=== PATIENT | male | born 1950 | race Caucasian/White ===

== ENCOUNTER 2018-06-25 12:00 | Inpatient (IN) | payer OTHER ==
[~2018-06-25 12:00] MED LIST: ETOMIDATE 20 MG INJ; KETAMINE (50 MG/ML) 10 ML VIAL
[2018-06-25] MEDS: SOD CHLORIDE 0.9% 250 ML IV ×2 (12:14→14:00)
[2018-06-25] MEDS: SODIUM CHLORIDE 0.9% 1L BAG IV* (12:20)
[2018-06-25 12:46] LABS: IMMEDIATE SPIN CROSSMATCH 1 3
[2018-06-25 12:48] LABS: WHITE BLOOD COUNT 17.8 10^3/ul (4.8-10.8)
[2018-06-25 12:48] LABS: ABNORMAL IP MESSAGE 1; MEAN CORPUSCULAR HGB CONC 28.4 g/dl (32.0-37.0); MEAN CORPUSCULAR VOLUME 112.4 fl (82.0-101.0); MEAN PLATELET VOLUME 12.1 fl (7.4-10.4); NUCLEATED RED BLOOD CELLS% 0.1 /100WBC (0.0-0.0); PLATELET COUNT 200 10^3/UL (140-415); POSITIVE DIFF @See below; RED BLOOD COUNT 1.69 10^6/ul (4.70-6.10); RED CELL DISTRIBUTION WIDTH 15.5 % (11.5-14.5)
[2018-06-25 12:51] LABS: ADD MAN DIFF? YES; HEMOGLOBIN 5.4 g/dl (14.0-18.0)
[2018-06-25 12:52] LABS: PATH REVIEW? YES
[2018-06-25] MEDS ORDERED: LORAZEPAM 2 MG INJ (12:55)
[2018-06-25 13:07] LABS: INR 1.31; PARTIAL THROMBOPLASTIN TIME 29.4 Sec (23.0-35.0); PROTIME 16.5 Sec (11.9-14.9); PT RATIO 1.3
[2018-06-25 13:09] LABS: OCCULT BLOOD STOOL POSITIVE (NEGATIVE)
[2018-06-25 13:11] LABS: ALANINE AMINOTRANSFERASE 30 IU/L (13-69); ALBUMIN 2.6 g/dl (3.3-4.9); ALKALINE PHOSPHATASE 141 IU/L (42-121); ANION GAP 16 (5-13); ASPARTATE AMINO TRANSFERASE 54 IU/L (15-46); BILIRUBIN,INDIRECT 0.1 mg/dl (0-1.1); BILIRUBIN,TOTAL 0.1 mg/dl (0.2-1.3); BLOOD UREA NITROGEN 88 mg/dl (7-20); CALCIUM 8.3 mg/dl (8.4-10.2); CARBON DIOXIDE 14 mmol/L (21-31); CHLORIDE 119 mmol/L (97-110); CREATININE 4.24 mg/dl (0.61-1.24); Estimated GFR 14 mL/min (>60); GLUCOSE 95 mg/dl (70-220); POTASSIUM 5.3 mmol/L (3.5-5.1); SODIUM 149 mmol/L (135-144); TOTAL PROTEIN 5.2 g/dl (6.1-8.1)
[2018-06-25] MEDS: NORepinephrine 8MG/250 ML (PMX 250 ML IV (13:11)
[2018-06-25] MEDS: LORAZEPAM 2 MG INJ IV (13:11)
[2018-06-25] MEDS: PIPER-TAZO 3.375 GM IV (PMX) 100 ML IVPB (13:14)
[2018-06-25 13:15] LABS: ANISOCYTOSIS 1+ (0-0); BAND NEUTROPHILS #M 5.3 10^3/ul (0.0-0.6); BAND NEUTROPHILS % (M) 30 % (0-4); ERYTHROBLAST% (NRBC) (M) 1 % (0-0); LYMPHOCYTES #M 0.5 10^3/ul (0.8-2.9); LYMPHOCYTES % (M) 3 % (15-51); MICROCYTOSIS 1+ (0-0); MONOCYTE #M 0.8 10^3/ul (0.3-0.9); MONOCYTES % (M) 5 % (0-11); PLATELET ESTIMATE NORMAL; POIKILOCYTOSIS 2+ (0-0); POLYCHROMASIA 3+ (0-0); SEGMENTED NEUTROPHILS (M) % 62 % (39-77)
[2018-06-25 13:22] LABS: TROPONIN-I 0.075 ng/ml (0.000-0.120)
[2018-06-25] MEDS ORDERED: VANCOMYCIN IV PER PHARMACY XX (13:30)
[2018-06-25] MEDS ORDERED: DOCUSATE SODIUM 100 MG CAP PO (13:30)
[2018-06-25] MEDS ORDERED: NITROGLYCERIN (SL) 0.4 MG TAB SL (13:30)
[2018-06-25] MEDS ORDERED: ACETAMINOPHEN 325 MG TAB PO (13:30)
[2018-06-25] MEDS ORDERED: ONDANSETRON 4 MG INJ IV ×2 (13:30)
[2018-06-25] MEDS ORDERED: NA PHOSPHATE/BIPHOS 133 ML ENEMA PR (13:30)
[2018-06-25] MEDS ORDERED: ALBUTEROL/IPRATROPIUM (NEB) 3 ML AMP HHN (13:30)
[2018-06-25] MEDS ORDERED: MAGNESIUM HYDROXIDE 30ML CUP PO (13:30)
[2018-06-25] MEDS ORDERED: NACL 0.9% 3 ML SYG IV (13:30)
[2018-06-25 13:38] LABS: ADD UMIC YES; UR ASCORBIC ACID NEGATIVE (NEGATIVE); UR BACTERIA FEW /HPF (NONE SEEN); UR BILIRUBIN (Dip) NEGATIVE (NEGATIVE); UR BLOOD (Dip) 1+ mg/dL (NEGATIVE); UR CLARITY SLIGHTLY CLOUDY (CLEAR); UR COLOR YELLOW (YELLOW); UR GLUCOSE (Dip) NEGATIVE (NEGATIVE); UR KETONES (Dip) NEGATIVE (NEGATIVE); UR LEUKOCYTE ESTERASE (Dip) 1+ Leu/ul (NEGATIVE); UR NITRITE (Dip) NEGATIVE (NEGATIVE); UR RBC 7 /HPF (0-5); UR SPECIFIC GRAVITY (Dip) 1.014 (1.003-1.030); UR TOTAL PROTEIN (Dip) NEGATIVE (NEGATIVE); UR UROBILINOGEN (Dip) NEGATIVE (NEGATIVE); UR WBC 34 /HPF (0-5)
[2018-06-25 13:58] LABS: CREATINE KINASE 625 IU/L (23-200)
[2018-06-25 14:07] LABS: FREE T4 (FREE THYROXINE) 0.49 ng/dl (0.78-2.44)
[2018-06-25 14:11] LABS: CK INDEX 0.7; CK-MB 4.15 ng/ml (0.0-2.4); TROPONIN-I 0.087 ng/ml (0.000-0.120)
[2018-06-25] MEDS ORDERED: PHENYLephrine 20MG IN 250 ML 250 ML (14:12)
[2018-06-25] MEDS: PHENYLephrine 20MG IN 250 ML 250 ML IV (14:15)
[2018-06-25 14:19] LABS: AADO2 Arterial 196.9 mmHg (7.0-24.0); Allen Test ACCEPTAB; Arterial Base Excess -13.9 mmol/L (-3.0-3); Arterial Blood Gas Oxygen Sat 96.7 mmHG (95.0-98.0); Arterial COHb 0.3 % (0.0-3.0); Arterial Fraction of Oxyhgb 96.1 % (93.0-99.0); Arterial MetHb 0.3 % (0.0-1.5); Arterial Total Hemglobin 8.7 g/dl (12.0-18.0); Arterial pCO2 34.2 mmhg (35-45); Blood Gas Low PEEP Setting 0 cmH2O; MODE VENT - AC; Site Left Radial
[2018-06-25] MEDS: LEVETIRACETAM 1000 MG (PMX) 100 ML IVPB (14:26)
[2018-06-25] MEDS: VANCOMYCIN 1 GM (PMX) 250 ML IVPB (15:10)
[2018-06-25] MEDS ORDERED: NA BICARBONATE 8.4% 50 ML SYG (15:47)
[2018-06-25] MEDS: NA BICARBONATE 8.4% 50 ML SYG IV (15:54)
[2018-06-25 16:40] LABS: ABNORMAL IP MESSAGE 1; HEMATOCRIT 27.4 % (42.0-52.0); HEMOGLOBIN 8.7 g/dl (14.0-18.0); MEAN CORPUSCULAR HEMOGLOBIN 31.5 pg (29.0-33.0); MEAN CORPUSCULAR HGB CONC 31.8 g/dl (32.0-37.0); MEAN CORPUSCULAR VOLUME 99.3 fl (82.0-101.0); MEAN PLATELET VOLUME 11.8 fl (7.4-10.4); NUCLEATED RED BLOOD CELLS% 0.2 /100WBC (0.0-0.0); PLATELET COUNT 220 10^3/UL (140-415); POSITIVE DIFF @See below; RED BLOOD COUNT 2.76 10^6/ul (4.70-6.10); RED CELL DISTRIBUTION WIDTH 17.3 % (11.5-14.5)
[2018-06-25 16:42] LABS: ADD MAN DIFF? YES
[2018-06-25] MEDS: SOD CHLORIDE 0.9% 1,000 ML IV (16:51)
[2018-06-25 17:10] LABS: LACTIC ACID 9.8 mmol/L (0.5-2.0)
[2018-06-25] MEDS: NORepinephrine 32 MG in DEXTROSE 5% 218 ML IV (17:24)
[2018-06-25] MEDS: VASOPRESSIN 60 UNIT in DEXTROSE 5% 57 ML IV (17:30)
[2018-06-25] MEDS ORDERED: PHENYLephrine 40 MG in DEXTROSE 5% 496 ML IV (17:30)
[2018-06-25 17:40] LABS: HEMOGLOBIN A1C 5.5 % (0-5.9)
[2018-06-25] MEDS: MINERAL OIL 133 ML ENEMA PR ×2 (17:47→18:55)
[2018-06-25] MEDS ORDERED: PIPER-TAZO 3.375 GM IV (PMX) 100 ML IVPB (18:00)
[2018-06-25 18:33] LABS: AADO2 Arterial 162.9 mmHg (7.0-24.0); Allen Test ACCEPTAB; Arterial Base Excess -9.5 mmol/L (-3.0-3); Arterial Blood Gas Oxygen Sat 98.3 mmHG (95.0-98.0); Arterial COHb 0.3 % (0.0-3.0); Arterial Fraction of Oxyhgb 97.6 % (93.0-99.0); Arterial HCO3 15.9 mmol/L (22.0-26.0); Arterial MetHb 0.4 % (0.0-1.5); Arterial pCO2 32.6 mmhg (35-45); MODE VENT - AC; Site Right Radial
[2018-06-25] MEDS: PANTOPRAZOLE 40 MG INJ IV (18:55)
[2018-06-25] MEDS: MIDAZOLAM (DRIP) 50 mg/50 mL 50 ML IV (20:00)
[2018-06-25] MEDS: PHENYLephrine 80 MG in DEXTROSE 5% 492 ML IV ×2 (20:20→22:40)
[2018-06-25] MEDS: MIRTAZAPINE 15 MG TAB PO (20:57)
[2018-06-25] MEDS: MEMANTINE 10 MG TAB PO (20:58)
[2018-06-25 21:00] LABS: CREATINE KINASE 1568 IU/L (23-200)
[2018-06-25] MEDS ORDERED: FAMOTIDINE 20 MG INJ IV (21:00)
[2018-06-25 21:04] LABS: LACTIC ACID 9.3 mmol/L (0.5-2.0)
[2018-06-25 21:12] LABS: CK INDEX 0.8
[2018-06-25] MEDS: DEXTROSE 5%-0.45% NACL 1,000 ML IV (21:34)
[2018-06-25 21:52] LABS: ANISOCYTOSIS 2+ (0-0); BAND NEUTROPHILS #M 5.8 10^3/ul (0.0-0.6); BAND NEUTROPHILS % (M) 45 % (0-4); BURR CELLS 1+ (0-0); GIANT THROMBO% (M) 8 % (0-0); LYMPHOCYTES #M 0.3 10^3/ul (0.8-2.9); LYMPHOCYTES % (M) 3 % (15-51); METAMYELOCYTES #M 0.1 10^3/ul (0.0-0.0); METAMYELOCYTES %M 1 % (0-0); MICROCYTOSIS 1+ (0-0); MONOCYTE #M 0.1 10^3/ul (0.3-0.9); MONOCYTES % (M) 1 % (0-11); MYELOCYTES #M 0.1 10^3/ul (0.0-0.0); MYELOCYTES % (M) 1 % (0-0); PLATELET ESTIMATE NORMAL; POIKILOCYTOSIS 1+ (0-0); POLYCHROMASIA 1+ (0-0); SEG NEUT #M 7.1 10^3/ul (1.6-7.5); SEGMENTED NEUTROPHILS (M) % 49 % (39-77); SMUDGE%M 93 % (0-0)
[2018-06-25] MEDS: PIPER-TAZO 2.25 GM (PMX) 50 ML IVPB (22:07)
[2018-06-26] MEDS: PHENYLephrine 160 MG in DEXTROSE 5% 484 ML IV ×3 (00:56→18:32)
[2018-06-26 01:04] LABS: HEMATOCRIT 29.9 % (42.0-52.0); HEMOGLOBIN 9.4 g/dl (14.0-18.0)
[2018-06-26 01:26] LABS: LACTIC ACID 8.8 mmol/L (0.5-2.0)
[2018-06-26] MEDS: VASOPRESSIN 60 UNIT in DEXTROSE 5% 57 ML IV ×3 (01:37→20:14)
[2018-06-26] MEDS: MIDAZOLAM (DRIP) 50 mg/50 mL 50 ML IV (04:32)
[2018-06-26 04:59] LABS: ABNORMAL IP MESSAGE 1; HEMOGLOBIN 8.4 g/dl (14.0-18.0); MEAN CORPUSCULAR HEMOGLOBIN 30.5 pg (29.0-33.0); MEAN CORPUSCULAR HGB CONC 31.1 g/dl (32.0-37.0); MEAN CORPUSCULAR VOLUME 98.2 fl (82.0-101.0); MEAN PLATELET VOLUME 12.4 fl (7.4-10.4); NUCLEATED RED BLOOD CELLS% 0.5 /100WBC (0.0-0.0); PLATELET COUNT 142 10^3/UL (140-415); POSITIVE DIFF @See below; RED BLOOD COUNT 2.75 10^6/ul (4.70-6.10); RED CELL DISTRIBUTION WIDTH 17.9 % (11.5-14.5)
[2018-06-26 04:59] LABS: WHITE BLOOD COUNT 14.2 10^3/ul (4.8-10.8)
[2018-06-26] MEDS: PANTOPRAZOLE 40 MG INJ IV ×2 (05:11→19:30)
[2018-06-26] MEDS: PIPER-TAZO 2.25 GM (PMX) 50 ML IVPB ×3 (05:11→22:08)
[2018-06-26 05:14] LABS: HEMOGLOBIN A1C 5.6 % (0-5.9)
[2018-06-26 05:15] LABS: LACTIC ACID 5.1 mmol/L (0.5-2.0)
[2018-06-26 05:22] LABS: HDL CHOLESTEROL 26 mg/dl (31-75); TRIGLYCERIDES 32 mg/dl (0-149)
[2018-06-26 05:22] LABS: CHOLESTEROL < 50 mg/dl (100-200)
[2018-06-26 05:23] LABS: CREATINE KINASE 1445 IU/L (23-200)
[2018-06-26 05:25] LABS: ANION GAP 12 (5-13); BLOOD UREA NITROGEN 97 mg/dl (7-20); CARBON DIOXIDE 19 mmol/L (21-31); CHLORIDE 109 mmol/L (97-110); CREATININE 4.48 mg/dl (0.61-1.24); Estimated GFR 13 mL/min (>60); GLUCOSE 240 mg/dl (70-220); MAGNESIUM 4.2 mg/dl (1.7-2.5); PHOSPHORUS 3.5 mg/dl (2.5-4.9); POTASSIUM 5.3 mmol/L (3.5-5.1); SODIUM 140 mmol/L (135-144)
[2018-06-26 05:31] LABS: ADD MAN DIFF? YES; CREATININE,URINE RANDOM 16.19 mg/dl (20-370)
[2018-06-26 05:31] LABS: SODIUM,URINE RANDOM 149 mmol/L (30-90)
[2018-06-26 06:27] LABS: FOLATE 17.7 ng/ml (2.8-20.0)
[2018-06-26] MEDS: SOD CHLORIDE 0.9% 1,000 ML IV ×2 (07:00→18:47)
[2018-06-26 07:38] LABS: ANISOCYTOSIS 1+ (0-0); BAND NEUTROPHILS #M 9.9 10^3/ul (0.0-0.6); BAND NEUTROPHILS % (M) 70 % (0-4); BASOPHIL #M 0.1 10^3/ul (0.0-0.0); BASOPHILS % (M) 1 % (0-2); BURR CELLS 2+ (0-0); GIANT THROMBO% (M) 3 % (0-0); LYMPHOCYTES #M 0.7 10^3/ul (0.8-2.9); LYMPHOCYTES % (M) 5 % (15-51); METAMYELOCYTES #M 0.1 10^3/ul (0.0-0.0); METAMYELOCYTES %M 1 % (0-0); MONOCYTE #M 0.1 10^3/ul (0.3-0.9); MONOCYTES % (M) 1 % (0-11); MYELOCYTES #M 0.1 10^3/ul (0.0-0.0); MYELOCYTES % (M) 1 % (0-0); PLATELET ESTIMATE NORMAL; POIKILOCYTOSIS 2+ (0-0); REACTIVE LYMPHOCYTES #M 0.1 10^3/ul (0.0-0.0); REACTIVE LYMPHOCYTES% (M) 1 % (0-0); SEG NEUT #M 4.2 10^3/ul (1.6-7.5); SEGMENTED NEUTROPHILS (M) % 20 % (39-77)
[2018-06-26] MEDS ORDERED: MELOXICAM 15 MG TAB PO (09:00)
[2018-06-26 09:30] LABS: LACTIC ACID 3.9 mmol/L (0.5-2.0)
[2018-06-26] MEDS: MEMANTINE 10 MG TAB PO ×2 (09:39→20:28)
[2018-06-26] MEDS: MULTIVITAMINS THERAPEUTIC TAB PO (09:39)
[2018-06-26 10:35] LABS: ADD UMIC YES; UR ASCORBIC ACID NEGATIVE (NEGATIVE); UR BILIRUBIN (Dip) NEGATIVE (NEGATIVE); UR BLOOD (Dip) 3+ mg/dL (NEGATIVE); UR CLARITY CLOUDY (CLEAR); UR COLOR RED (YELLOW); UR GLUCOSE (Dip) 1+ mg/dL (NEGATIVE); UR KETONES (Dip) NEGATIVE (NEGATIVE); UR LEUKOCYTE ESTERASE (Dip) TRACE Leu/ul (NEGATIVE); UR NITRITE (Dip) NEGATIVE (NEGATIVE); UR RBC > 182 /HPF (0-5); UR SPECIFIC GRAVITY (Dip) 1.016 (1.003-1.030); UR TOTAL PROTEIN (Dip) 2+ mg/dl (NEGATIVE); UR UROBILINOGEN (Dip) NEGATIVE (NEGATIVE); UR WBC > 182 /HPF (0-5)
[2018-06-26] MEDS: morphine 2 MG INJ IV ×2 (11:46→16:02)
[2018-06-26] MEDS: NORepinephrine 32 MG in DEXTROSE 5% 218 ML IV (11:54)
[2018-06-26 12:08] LABS: HEMATOCRIT 26.2 % (42.0-52.0); HEMOGLOBIN 8.5 g/dl (14.0-18.0)
[2018-06-26 12:19] LABS: ANION GAP 12 (5-13); BLOOD UREA NITROGEN 99 mg/dl (7-20); CALCIUM 6.7 mg/dl (8.4-10.2); CARBON DIOXIDE 18 mmol/L (21-31); CHLORIDE 107 mmol/L (97-110); CREATININE 4.49 mg/dl (0.61-1.24); Estimated GFR 13 mL/min (>60); GLUCOSE 165 mg/dl (70-220); POTASSIUM 5.6 mmol/L (3.5-5.1); SODIUM 137 mmol/L (135-144)
[2018-06-26] MEDS: ACETAMINOPHEN 325 MG TAB PO ×2 (12:42→23:49)
[2018-06-26] MEDS: DIGOXIN 500 MCG INJ IV (13:42)
[2018-06-26] MEDS: CASPOFUNGIN 70 MG in SOD CHLORIDE 0.9% 250 ML IVPB (16:05)
[2018-06-26] MEDS: HYDROCODONE/APAP (5/325) TAB PO (16:05)
[2018-06-26 19:02] LABS: HEMOGLOBIN 8.2 g/dl (14.0-18.0)
[2018-06-26] MEDS: MINERAL OIL 133 ML ENEMA PR ×2 (20:04→20:28)
[2018-06-26] MEDS: AMIODARONE 150MG/D5W BOLUS 100 ML IV (20:04)
[2018-06-26] MEDS: MIRTAZAPINE 15 MG TAB PO (20:28)
[2018-06-26] MEDS: AMIODARONE 900 MG in DEXTROSE 5% 482 ML IV (20:29)
[2018-06-27 00:49] LABS: HEMATOCRIT 24.8 % (42.0-52.0)
[2018-06-27] MEDS: morphine 2 MG INJ IV (01:45)
[2018-06-27] MEDS: PHENYLephrine 160 MG in DEXTROSE 5% 484 ML IV ×3 (02:22→19:33)
[2018-06-27] MEDS: LORAZEPAM 2 MG INJ IV (04:38)
[2018-06-27] MEDS: SOD CHLORIDE 0.9% 1,000 ML IV ×2 (04:39→17:42)
[2018-06-27 05:16] LABS: WHITE BLOOD COUNT 10.7 10^3/ul (4.8-10.8)
[2018-06-27 05:16] LABS: ABNORMAL IP MESSAGE 1; HEMATOCRIT 25.3 % (42.0-52.0); HEMOGLOBIN 8.1 g/dl (14.0-18.0); MEAN CORPUSCULAR HEMOGLOBIN 30.7 pg (29.0-33.0); MEAN CORPUSCULAR VOLUME 95.8 fl (82.0-101.0); MEAN PLATELET VOLUME 13.4 fl (7.4-10.4); PLATELET COUNT 97 10^3/UL (140-415); POSITIVE DIFF @See below; RED BLOOD COUNT 2.64 10^6/ul (4.70-6.10); RED CELL DISTRIBUTION WIDTH 16.5 % (11.5-14.5)
[2018-06-27] MEDS: PIPER-TAZO 2.25 GM (PMX) 50 ML IVPB ×3 (05:18→21:32)
[2018-06-27] MEDS: PANTOPRAZOLE 40 MG INJ IV ×2 (05:18→17:42)
[2018-06-27 05:22] LABS: ADD MAN DIFF? YES
[2018-06-27 05:45] LABS: VANCOMYCIN,RANDOM 6.7 ug/ml
[2018-06-27 05:47] LABS: MAGNESIUM 3.8 mg/dl (1.7-2.5)
[2018-06-27 05:47] LABS: PHOSPHORUS 5.3 mg/dl (2.5-4.9)
[2018-06-27 05:48] LABS: BLOOD UREA NITROGEN 93 mg/dl (7-20); CALCIUM 6.3 mg/dl (8.4-10.2); CHLORIDE 103 mmol/L (97-110); CREATININE 3.82 mg/dl (0.61-1.24); Estimated GFR 16 mL/min (>60); GLUCOSE 128 mg/dl (70-220); POTASSIUM 4.5 mmol/L (3.5-5.1)
[2018-06-27 06:17] LABS: CARBON DIOXIDE 16 mmol/L (21-31); SODIUM 135 mmol/L (135-144)
[2018-06-27 06:33] LABS: ANION GAP 16 (5-13)
[2018-06-27] MEDS: MEMANTINE 10 MG TAB PO ×2 (08:15→21:31)
[2018-06-27] MEDS: MULTIVITAMINS THERAPEUTIC TAB PO (08:15)
[2018-06-27] MEDS: DIGOXIN 500 MCG INJ IV (08:16)
[2018-06-27 08:19] LABS: ANISOCYTOSIS 1+ (0-0); BAND NEUTROPHILS #M 4.8 10^3/ul (0.0-0.6); BAND NEUTROPHILS % (M) 45 % (0-4); ERYTHROBLAST% (NRBC) (M) 1 % (0-0); LYMPHOCYTES #M 0.3 10^3/ul (0.8-2.9); LYMPHOCYTES % (M) 3 % (15-51); MICROCYTOSIS 1+ (0-0); MONOCYTE #M 0.4 10^3/ul (0.3-0.9); MONOCYTES % (M) 4 % (0-11); OVALOCYTES 1+ (0-0); PLATELET ESTIMATE DECREASED; POIKILOCYTOSIS 1+ (0-0); POLYCHROMASIA 1+ (0-0); SEG NEUT #M 5.6 10^3/ul (1.6-7.5); SEGMENTED NEUTROPHILS (M) % 48 % (39-77); SMUDGE%M 1 % (0-0)
[2018-06-27 08:49] LABS: AMMONIA < 9 umol/l (9-30)
[2018-06-27] MEDS: SODIUM BICARBONATE (IV ADD) 100 MEQ in DEXTROSE 5% 1,000 ML IV (10:09)
[2018-06-27] MEDS: LIDOCAINE 1% (MPF) 5 ML VIAL SC (11:00)
[2018-06-27 12:50] LABS: HEMATOCRIT 25.1 % (42.0-52.0)
[2018-06-27] MEDS: BALSAM PERU/CASTOR OIL 60 GM TUBE TOP ×2 (14:00→21:32)
[2018-06-27 14:07] LABS: CREATINE KINASE 750 IU/L (23-200)
[2018-06-27 14:10] LABS: LACTIC ACID 2.8 mmol/L (0.5-2.0)
[2018-06-27] MEDS: CASPOFUNGIN 50 MG in SOD CHLORIDE 0.9% 250 ML IVPB (14:48)
[2018-06-27] MEDS: VANCOMYCIN 1.25 GM in SOD CHLORIDE 0.9% 250 ML IVPB (15:54)
[2018-06-27 16:16] LABS: CREATININE, RANDOM URINE 19 mg/dL (20-320); MICROALBUMIN 547.7 mg/dL; MICROALBUMIN/CREATININE RATIO 28826 (<30)
[2018-06-27] MEDS: VASOPRESSIN 60 UNIT in DEXTROSE 5% 57 ML IV (17:30)
[2018-06-27] MEDS: ACETAMINOPHEN 325 MG TAB PO (18:13)
[2018-06-27] MEDS: AMIODARONE 900 MG in DEXTROSE 5% 482 ML IV (18:14)
[2018-06-27 20:42] LABS: LACTIC ACID 2.6 mmol/L (0.5-2.0)
[2018-06-27] MEDS: MIRTAZAPINE 15 MG TAB PO (21:31)
[2018-06-27] MEDS: MUPIROCIN 2% 22 GM OINT TOP (21:32)
[2018-06-27] MEDS: LACTULOSE 30ML CUP PO (21:32)
[2018-06-28] MEDS: SODIUM BICARBONATE (IV ADD) 100 MEQ in DEXTROSE 5% 1,000 ML IV (00:21)
[2018-06-28] MEDS: morphine 2 MG INJ IV (03:00)
[2018-06-28] MEDS: PHENYLephrine 160 MG in DEXTROSE 5% 484 ML IV ×3 (03:48→20:34)
[2018-06-28 04:55] LABS: ABNORMAL IP MESSAGE 1; HEMATOCRIT 23.5 % (42.0-52.0); HEMOGLOBIN 7.8 g/dl (14.0-18.0); MEAN CORPUSCULAR HEMOGLOBIN 31.3 pg (29.0-33.0); MEAN CORPUSCULAR HGB CONC 33.2 g/dl (32.0-37.0); MEAN CORPUSCULAR VOLUME 94.4 fl (82.0-101.0); MEAN PLATELET VOLUME 14.1 fl (7.4-10.4); NUCLEATED RED BLOOD CELLS% 0.2 /100WBC (0.0-0.0); PLATELET COUNT 51 10^3/UL (140-415); POSITIVE DIFF @See below; RED BLOOD COUNT 2.49 10^6/ul (4.70-6.10); RED CELL DISTRIBUTION WIDTH 15.9 % (11.5-14.5)
[2018-06-28 04:55] LABS: WHITE BLOOD COUNT 10.4 10^3/ul (4.8-10.8)
[2018-06-28 04:59] LABS: ADD MAN DIFF? YES
[2018-06-28 05:20] LABS: ANION GAP 10 (5-13); BLOOD UREA NITROGEN 70 mg/dl (7-20); CALCIUM 6.2 mg/dl (8.4-10.2); CARBON DIOXIDE 23 mmol/L (21-31); CHLORIDE 108 mmol/L (97-110); Estimated GFR 24 mL/min (>60); GLUCOSE 112 mg/dl (70-220); SODIUM 141 mmol/L (135-144)
[2018-06-28 05:21] LABS: PHOSPHORUS 4.2 mg/dl (2.5-4.9)
[2018-06-28 05:21] LABS: MAGNESIUM 3.3 mg/dl (1.7-2.5)
[2018-06-28 05:24] LABS: POTASSIUM 2.9 mmol/L (3.5-5.1)
[2018-06-28 05:26] LABS: CREATINE KINASE 581 IU/L (23-200)
[2018-06-28] MEDS: VASOPRESSIN 60 UNIT in DEXTROSE 5% 57 ML IV ×2 (05:30→15:41)
[2018-06-28] MEDS: PIPER-TAZO 2.25 GM (PMX) 50 ML IVPB (05:43)
[2018-06-28] MEDS: PANTOPRAZOLE 40 MG INJ IV ×2 (05:43→18:14)
[2018-06-28] MEDS: LACTULOSE 30ML CUP PO (05:43)
[2018-06-28] MEDS: POTASSIUM CHLORIDE 50 ML IVPB ×3 (05:43→12:33)
[2018-06-28 06:24] LABS: DIGOXIN 0.4 ng/ml (1.0-2.0)
[2018-06-28 08:03] LABS: ANISOCYTOSIS 1+ (0-0); BAND NEUTROPHILS #M 2.4 10^3/ul (0.0-0.6); BAND NEUTROPHILS % (M) 24 % (0-4); BURR CELLS 1+ (0-0); LYMPHOCYTES #M 0.1 10^3/ul (0.8-2.9); LYMPHOCYTES % (M) 1 % (15-51); MICROCYTOSIS 1+ (0-0); MONOCYTE #M 0.2 10^3/ul (0.3-0.9); MONOCYTES % (M) 2 % (0-11); PLATELET ESTIMATE SIG DECREASED; POIKILOCYTOSIS 1+ (0-0); POLYCHROMASIA 2+ (0-0); SEG NEUT #M 7.8 10^3/ul (1.6-7.5); SEGMENTED NEUTROPHILS (M) % 73 % (39-77); SMUDGE%M 2 % (0-0)
[2018-06-28 08:57] LABS: AADO2 Arterial 166.5 mmHg (7.0-24.0); Allen Test ACCEPTAB; Arterial Base Excess -4.2 mmol/L (-3.0-3); Arterial Blood Gas Oxygen Sat 84.6 mmHG (95.0-98.0); Arterial COHb 0.3 % (0.0-3.0); Arterial Fraction of Oxyhgb 84.2 % (93.0-99.0); Arterial HCO3 19.2 mmol/L (22.0-26.0); Arterial MetHb 0.2 % (0.0-1.5); Arterial Total Hemglobin 9.8 g/dl (12.0-18.0); Arterial pCO2 29.5 mmhg (35-45); Blood Gas Low PEEP Setting 0 cmH2O; MODE VENT - AC; Site Right Radial
[2018-06-28] MEDS: SOD CHLORIDE 0.9% 1,000 ML IV ×2 (09:12→09:29)
[2018-06-28] MEDS: MEMANTINE 10 MG TAB PO ×2 (09:20→21:51)
[2018-06-28] MEDS: MULTIVITAMINS THERAPEUTIC TAB PO (09:20)
[2018-06-28] MEDS: BALSAM PERU/CASTOR OIL 60 GM TUBE TOP ×2 (09:21→21:52)
[2018-06-28] MEDS: MUPIROCIN 2% 22 GM OINT TOP ×2 (09:21→21:52)
[2018-06-28 10:39] LABS: PLATELET COUNT 45 10^3/UL (140-415)
[2018-06-28 10:40] LABS: ALANINE AMINOTRANSFERASE 55 IU/L (13-69); ALKALINE PHOSPHATASE 280 IU/L (42-121); ASPARTATE AMINO TRANSFERASE 76 IU/L (15-46); BILIRUBIN,INDIRECT 0.3 mg/dl (0-1.1); BILIRUBIN,TOTAL 0.3 mg/dl (0.2-1.3); TOTAL PROTEIN 4.4 g/dl (6.1-8.1)
[2018-06-28 10:43] LABS: INR 1.17; PROTIME 15.1 Sec (11.9-14.9); PT RATIO 1.2
[2018-06-28 10:44] LABS: PARTIAL THROMBOPLASTIN TIME 43.9 Sec (23.0-35.0); THROMBIN TIME 16.2 SEC (13.8-19.1)
[2018-06-28 10:50] LABS: LACTIC ACID 3.4 mmol/L (0.5-2.0)
[2018-06-28 11:02] LABS: FIBRIN SPLIT PRODUCT >10 and <40 ug/ml (<10)
[2018-06-28 11:03] LABS: D-DIMER > 10000.00 ng/ml (<460)
[2018-06-28] MEDS: CASPOFUNGIN 50 MG in SOD CHLORIDE 0.9% 250 ML IVPB (15:41)
[2018-06-28 18:41] LABS: HEMATOCRIT 22.2 % (42.0-52.0); HEMOGLOBIN 7.3 g/dl (14.0-18.0)
[2018-06-28 19:03] LABS: LACTIC ACID 2.6 mmol/L (0.5-2.0)
[2018-06-28] MEDS: AMIODARONE 900 MG in DEXTROSE 5% 482 ML IV (21:15)
[2018-06-28] MEDS: MIRTAZAPINE 15 MG TAB PO (21:51)
[2018-06-29 00:35] LABS: HEMATOCRIT 22.8 % (42.0-52.0); HEMOGLOBIN 7.5 g/dl (14.0-18.0)
[2018-06-29] MEDS: VASOPRESSIN 60 UNIT in DEXTROSE 5% 57 ML IV ×2 (05:17→17:03)
[2018-06-29 05:31] LABS: ABNORMAL IP MESSAGE 1; HEMOGLOBIN 7.2 g/dl (14.0-18.0); MEAN CORPUSCULAR HGB CONC 32.7 g/dl (32.0-37.0); MEAN CORPUSCULAR VOLUME 94.8 fl (82.0-101.0); MEAN PLATELET VOLUME 13.6 fl (7.4-10.4); PLATELET COUNT 47 10^3/UL (140-415); POSITIVE DIFF @See below; RED BLOOD COUNT 2.32 10^6/ul (4.70-6.10); RED CELL DISTRIBUTION WIDTH 15.9 % (11.5-14.5)
[2018-06-29 05:31] LABS: WHITE BLOOD COUNT 11.1 10^3/ul (4.8-10.8)
[2018-06-29] MEDS: PANTOPRAZOLE 40 MG INJ IV (05:47)
[2018-06-29 06:07] LABS: VANCOMYCIN,RANDOM 7.3 ug/ml
[2018-06-29 06:09] LABS: ANION GAP 12 (5-13); BLOOD UREA NITROGEN 52 mg/dl (7-20); CALCIUM 6.8 mg/dl (8.4-10.2); CARBON DIOXIDE 24 mmol/L (21-31); CHLORIDE 116 mmol/L (97-110); CREATININE 1.92 mg/dl (0.61-1.24); Estimated GFR 35 mL/min (>60); GLUCOSE 103 mg/dl (70-220); SODIUM 152 mmol/L (135-144)
[2018-06-29 06:16] LABS: ADD MAN DIFF? YES
[2018-06-29 06:17] LABS: CREATINE KINASE 280 IU/L (23-200)
[2018-06-29 06:22] LABS: POTASSIUM 2.7 mmol/L (3.5-5.1)
[2018-06-29] MEDS: SOD CHLORIDE 0.9% 1,000 ML IV (06:54)
[2018-06-29 07:05] LABS: PHOSPHORUS 3.2 mg/dl (2.5-4.9)
[2018-06-29 07:05] LABS: MAGNESIUM 3.1 mg/dl (1.7-2.5)
[2018-06-29 08:22] LABS: ANISOCYTOSIS 1+ (0-0); BAND NEUTROPHILS #M 0.1 10^3/ul (0.0-0.6); BAND NEUTROPHILS % (M) 1 % (0-4); BURR CELLS 1+ (0-0); LYMPHOCYTES #M 0.6 10^3/ul (0.8-2.9); LYMPHOCYTES % (M) 6 % (15-51); MICROCYTOSIS 1+ (0-0); MONOCYTE #M 0.2 10^3/ul (0.3-0.9); MONOCYTES % (M) 2 % (0-11); PLATELET ESTIMATE DECREASED; POIKILOCYTOSIS 1+ (0-0); POLYCHROMASIA 1+ (0-0); SEG NEUT #M 10.1 10^3/ul (1.6-7.5); SEGMENTED NEUTROPHILS (M) % 91 % (39-77); SMUDGE%M 19 % (0-0)
[2018-06-29] MEDS: POTASSIUM CHLORIDE 50 ML IVPB ×4 (08:37→15:38)
[2018-06-29] MEDS: MEMANTINE 10 MG TAB PO ×2 (08:38→21:31)
[2018-06-29] MEDS: SOD CHLORIDE 0.45% 1,000 ML IV ×2 (08:38→17:00)
[2018-06-29] MEDS: MULTIVITAMINS 30 ML CUP NGT (08:38)
[2018-06-29] MEDS: MUPIROCIN 2% 22 GM OINT TOP ×2 (08:39→21:32)
[2018-06-29] MEDS: BALSAM PERU/CASTOR OIL 60 GM TUBE TOP ×2 (08:39→21:32)
[2018-06-29] MEDS: VANCOMYCIN 1.25 GM in SOD CHLORIDE 0.9% 250 ML IVPB (09:09)
[2018-06-29 09:18] LABS: AADO2 Arterial 96.2 mmHg (7.0-24.0); Arterial Base Excess 0.9 mmol/L (-3.0-3); Arterial Blood Gas Oxygen Sat 98.9 mmHG (95.0-98.0); Arterial COHb 0.3 % (0.0-3.0); Arterial Fraction of Oxyhgb 98.3 % (93.0-99.0); Arterial MetHb 0.3 % (0.0-1.5); Arterial Total Hemglobin 7.7 g/dl (12.0-18.0); Arterial pCO2 31.6 mmhg (35-45); MODE VENT - AC; Site Right Brachial
[2018-06-29] MEDS: SUCRALFATE (100 MG/ML) 10ML CUP NGT ×4 (10:56→21:31)
[2018-06-29] MEDS: PANTOPRAZOLE IV 80 MG in SOD CHLORIDE 0.9% 100 ML IV ×2 (10:56→19:14)
[2018-06-29 11:17] LABS: IMMEDIATE SPIN CROSSMATCH 1 2
[2018-06-29] MEDS: PHENYLephrine 160 MG in DEXTROSE 5% 484 ML IV (11:43)
[2018-06-29 14:18] LABS: LACTIC ACID 1.3 mmol/L (0.5-2.0)
[2018-06-29 14:41] LABS: TYPE AND SCREEN 1
[2018-06-29] MEDS: CASPOFUNGIN 50 MG in SOD CHLORIDE 0.9% 250 ML IVPB (15:39)
[2018-06-29 18:29] LABS: HEMATOCRIT 24.9 % (42.0-52.0); HEMOGLOBIN 8.2 g/dl (14.0-18.0)
[2018-06-29 18:46] LABS: LACTIC ACID 1.4 mmol/L (0.5-2.0)
[2018-06-29 18:47] LABS: ANION GAP 3 (5-13); BLOOD UREA NITROGEN 43 mg/dl (7-20); CARBON DIOXIDE 24 mmol/L (21-31); CHLORIDE 116 mmol/L (97-110); CREATININE 1.49 mg/dl (0.61-1.24); Estimated GFR 47 mL/min (>60); GLUCOSE 93 mg/dl (70-220); POTASSIUM 3.3 mmol/L (3.5-5.1); SODIUM 143 mmol/L (135-144)
[2018-06-29] MEDS: MIRTAZAPINE 15 MG TAB PO (22:07)
[2018-06-30] MEDS: SOD CHLORIDE 0.45% 1,000 ML IV ×3 (00:34→21:12)
[2018-06-30 00:38] LABS: HEMATOCRIT 24.1 % (42.0-52.0)
[2018-06-30 00:58] LABS: LACTIC ACID 1.2 mmol/L (0.5-2.0)
[2018-06-30] MEDS: AMIODARONE 900 MG in DEXTROSE 5% 482 ML IV (03:55)
[2018-06-30] MEDS: PANTOPRAZOLE IV 80 MG in SOD CHLORIDE 0.9% 100 ML IV ×2 (05:24→17:42)
[2018-06-30] MEDS: VASOPRESSIN 60 UNIT in DEXTROSE 5% 57 ML IV ×2 (05:30→17:30)
[2018-06-30 06:57] LABS: CREATINE KINASE 178 IU/L (23-200)
[2018-06-30 07:44] LABS: ADD MAN DIFF? NO
[2018-06-30 07:45] LABS: WHITE BLOOD COUNT 8.4 10^3/ul (4.8-10.8)
[2018-06-30 07:45] LABS: ABNORMAL IP MESSAGE 1; BASOPHILS % 0.2 % (0.0-2.0); EOSINOPHILS # 0.1 10^3/ul (0.0-0.5); HEMATOCRIT 25.2 % (42.0-52.0); HEMOGLOBIN 8.3 g/dl (14.0-18.0); LYMPHOCYTES # 0.8 10^3/ul (0.8-2.9); LYMPHOCYTES % 9.8 % (15.0-51.0); MEAN CORPUSCULAR HEMOGLOBIN 31.3 pg (29.0-33.0); MEAN CORPUSCULAR HGB CONC 32.9 g/dl (32.0-37.0); MEAN CORPUSCULAR VOLUME 95.1 fl (82.0-101.0); MEAN PLATELET VOLUME 13.3 fl (7.4-10.4); MONOCYTE # 0.6 10^3/ul (0.3-0.9); MONOCYTES % 7.3 % (0.0-11.0); NEUTROPHIL # 6.7 10^3/ul (1.6-7.5); NEUTROPHILS % 80.3 % (39.0-77.0); NUCLEATED RED BLOOD CELLS # 0.1 10^3/ul (0.0-0.0); NUCLEATED RED BLOOD CELLS% 0.6 /100WBC (0.0-0.0); PLATELET COUNT 82 10^3/UL (140-415); POSITIVE DIFF @See below; RED BLOOD COUNT 2.65 10^6/ul (4.70-6.10); RED CELL DISTRIBUTION WIDTH 16.3 % (11.5-14.5)
[2018-06-30 07:55] LABS: MAGNESIUM 2.6 mg/dl (1.7-2.5)
[2018-06-30 07:55] LABS: LACTIC ACID 1.4 mmol/L (0.5-2.0); PHOSPHORUS 2.5 mg/dl (2.5-4.9)
[2018-06-30 08:01] LABS: ANION GAP 9 (5-13); BLOOD UREA NITROGEN 36 mg/dl (7-20); CALCIUM 7.3 mg/dl (8.4-10.2); CARBON DIOXIDE 23 mmol/L (21-31); CHLORIDE 116 mmol/L (97-110); CREATININE 1.35 mg/dl (0.61-1.24); Estimated GFR 52 mL/min (>60); GLUCOSE 89 mg/dl (70-220); SODIUM 148 mmol/L (135-144)
[2018-06-30] MEDS: SUCRALFATE (100 MG/ML) 10ML CUP NGT ×4 (09:04→21:11)
[2018-06-30] MEDS: MEMANTINE 10 MG TAB PO ×2 (09:04→21:11)
[2018-06-30] MEDS: MULTIVITAMINS 30 ML CUP NGT (09:04)
[2018-06-30] MEDS: MUPIROCIN 2% 22 GM OINT TOP ×2 (09:05→21:12)
[2018-06-30] MEDS: BALSAM PERU/CASTOR OIL 60 GM TUBE TOP ×2 (09:05→21:12)
[2018-06-30] MEDS: VANCOMYCIN 1.25 GM in SOD CHLORIDE 0.9% 250 ML IVPB (09:05)
[2018-06-30 10:56] LABS: ANISOCYTOSIS 1+ (0-0); BAND NEUTROPHILS #M 0.1 10^3/ul (0.0-0.6); BAND NEUTROPHILS % (M) 2 % (0-4); ERYTHROBLAST% (NRBC) (M) 1 % (0-0); LYMPHOCYTES #M 0.6 10^3/ul (0.8-2.9); LYMPHOCYTES % (M) 8 % (15-51); METAMYELOCYTES %M 1 % (0-0); MICROCYTOSIS 1+ (0-0); MONOCYTE #M 0.6 10^3/ul (0.3-0.9); MONOCYTES % (M) 8 % (0-11); PLATELET ESTIMATE DECREASED; POIKILOCYTOSIS 1+ (0-0); POLYCHROMASIA 3+ (0-0); SEG NEUT #M 6.8 10^3/ul (1.6-7.5); SEGMENTED NEUTROPHILS (M) % 81 % (39-77); SMUDGE%M 12 % (0-0)
[2018-06-30 12:38] LABS: HEMATOCRIT 25.1 % (42.0-52.0); HEMOGLOBIN 8.2 g/dl (14.0-18.0)
[2018-06-30 13:02] LABS: LACTIC ACID 1.2 mmol/L (0.5-2.0)
[2018-06-30] MEDS: PHENYLephrine 160 MG in DEXTROSE 5% 484 ML IV (13:16)
[2018-06-30] MEDS: POTASSIUM CHLORIDE 100 ML IVPB (14:23)
[2018-06-30] MEDS: CASPOFUNGIN 50 MG in SOD CHLORIDE 0.9% 250 ML IVPB (15:48)
[2018-06-30 18:26] LABS: HEMATOCRIT 26.2 % (42.0-52.0); HEMOGLOBIN 8.6 g/dl (14.0-18.0)
[2018-06-30] MEDS: MIRTAZAPINE 15 MG TAB PO (21:11)
[2018-07-01 00:51] LABS: HEMATOCRIT 26.2 % (42.0-52.0); HEMOGLOBIN 8.5 g/dl (14.0-18.0)
[2018-07-01] MEDS: PANTOPRAZOLE IV 80 MG in SOD CHLORIDE 0.9% 100 ML IV ×2 (03:37→14:43)
[2018-07-01] MEDS: AMIODARONE 900 MG in DEXTROSE 5% 482 ML IV (03:37)
[2018-07-01 05:21] LABS: AADO2 Arterial 64.8 mmHg (7.0-24.0); Allen Test ACCEPTAB; Arterial Base Excess 0.2 mmol/L (-3.0-3); Arterial Blood Gas Oxygen Sat 97.9 mmHG (95.0-98.0); Arterial COHb 0.3 % (0.0-3.0); Arterial Fraction of Oxyhgb 97.3 % (93.0-99.0); Arterial HCO3 22.7 mmol/L (22.0-26.0); Arterial MetHb 0.3 % (0.0-1.5); Arterial Total Hemglobin 7.7 g/dl (12.0-18.0); MODE VENT - AC; Site Right Radial
[2018-07-01] MEDS: VASOPRESSIN 60 UNIT in DEXTROSE 5% 57 ML IV ×2 (05:30→19:00)
[2018-07-01] MEDS: SOD CHLORIDE 0.45% 1,000 ML IV ×2 (06:05→22:10)
[2018-07-01 06:42] LABS: HEMATOCRIT 23.2 % (42.0-52.0); HEMOGLOBIN 7.6 g/dl (14.0-18.0); MEAN CORPUSCULAR HEMOGLOBIN 30.9 pg (29.0-33.0); MEAN CORPUSCULAR HGB CONC 32.8 g/dl (32.0-37.0); MEAN CORPUSCULAR VOLUME 94.3 fl (82.0-101.0); MEAN PLATELET VOLUME 12.7 fl (7.4-10.4); NUCLEATED RED BLOOD CELLS% 0.5 /100WBC (0.0-0.0); PLATELET COUNT 125 10^3/UL (140-415); POSITIVE DIFF @See below; RED BLOOD COUNT 2.46 10^6/ul (4.70-6.10); RED CELL DISTRIBUTION WIDTH 15.9 % (11.5-14.5)
[2018-07-01 06:42] LABS: WHITE BLOOD COUNT 10.9 10^3/ul (4.8-10.8)
[2018-07-01 07:00] LABS: ADD MAN DIFF? YES
[2018-07-01 07:16] LABS: LACTIC ACID 1.3 mmol/L (0.5-2.0)
[2018-07-01 07:25] LABS: MAGNESIUM 1.9 mg/dl (1.7-2.5)
[2018-07-01 07:25] LABS: ALANINE AMINOTRANSFERASE 65 IU/L (13-69); ALBUMIN 1.8 g/dl (3.3-4.9); ALKALINE PHOSPHATASE 213 IU/L (42-121); ANION GAP 4 (5-13); ASPARTATE AMINO TRANSFERASE 74 IU/L (15-46); BILIRUBIN,INDIRECT 0.2 mg/dl (0-1.1); BILIRUBIN,TOTAL 0.2 mg/dl (0.2-1.3); BLOOD UREA NITROGEN 25 mg/dl (7-20); CALCIUM 7.1 mg/dl (8.4-10.2); CARBON DIOXIDE 25 mmol/L (21-31); CHLORIDE 114 mmol/L (97-110); CREATININE 1.08 mg/dl (0.61-1.24); Estimated GFR > 60 mL/min (>60); GLUCOSE 123 mg/dl (70-220); SODIUM 143 mmol/L (135-144); TOTAL PROTEIN 3.8 g/dl (6.1-8.1)
[2018-07-01 07:33] LABS: POTASSIUM 2.8 mmol/L (3.5-5.1)
[2018-07-01] MEDS: POTASSIUM CHLORIDE 100 ML IVPB ×3 (08:27→13:16)
[2018-07-01] MEDS: MEMANTINE 10 MG TAB PO ×2 (08:28→20:22)
[2018-07-01] MEDS: VANCOMYCIN 1.25 GM in SOD CHLORIDE 0.9% 250 ML IVPB (08:28)
[2018-07-01] MEDS: MUPIROCIN 2% 22 GM OINT TOP ×2 (08:28→20:22)
[2018-07-01] MEDS: MULTIVITAMINS 30 ML CUP NGT (08:28)
[2018-07-01] MEDS: SUCRALFATE (100 MG/ML) 10ML CUP NGT ×4 (08:28→20:22)
[2018-07-01] MEDS: BALSAM PERU/CASTOR OIL 60 GM TUBE TOP ×2 (08:28→20:22)
[2018-07-01 09:21] LABS: ANISOCYTOSIS 1+ (0-0); BAND NEUTROPHILS #M 0.2 10^3/ul (0.0-0.6); BAND NEUTROPHILS % (M) 2 % (0-4); BASOPHIL #M 0.1 10^3/ul (0.0-0.0); BASOPHILS % (M) 1 % (0-2); EOSINOPHILS % (M) 1 % (0-7); ERYTHROBLAST% (NRBC) (M) 1 % (0-0); GIANT THROMBO% (M) 2 % (0-0); LYMPHOCYTES #M 1.4 10^3/ul (0.8-2.9); LYMPHOCYTES % (M) 13 % (15-51); MONOCYTE #M 0.7 10^3/ul (0.3-0.9); MONOCYTES % (M) 7 % (0-11); PLATELET ESTIMATE DECREASED; POLYCHROMASIA 2+ (0-0); SEG NEUT #M 8.3 10^3/ul (1.6-7.5); SEGMENTED NEUTROPHILS (M) % 76 % (39-77); SMUDGE%M 6 % (0-0); TOXIC GRANULATION 1+ (0-0)
[2018-07-01] MEDS: SOD CHLORIDE 0.9% 250 ML IV* (13:16)
[2018-07-01] MEDS: CASPOFUNGIN 50 MG in SOD CHLORIDE 0.9% 250 ML IVPB (14:51)
[2018-07-01] MEDS: CEFTRIAXONE 1 GM/50 ML (PMX) 50 ML IVPB (16:58)
[2018-07-01 18:29] LABS: HEMATOCRIT 24.8 % (42.0-52.0); HEMOGLOBIN 8.1 g/dl (14.0-18.0)
[2018-07-01] MEDS: MIRTAZAPINE 15 MG TAB PO (20:22)
[2018-07-01] MEDS: LORAZEPAM 2 MG INJ IV (20:26)
[2018-07-02] MEDS: PANTOPRAZOLE IV 80 MG in SOD CHLORIDE 0.9% 100 ML IV ×2 (03:05→13:18)
[2018-07-02 05:29] LABS: ADD MAN DIFF? NO
[2018-07-02] MEDS: VASOPRESSIN 60 UNIT in DEXTROSE 5% 57 ML IV (05:30)
[2018-07-02 05:47] LABS: WHITE BLOOD COUNT 12.9 10^3/ul (4.8-10.8)
[2018-07-02 05:47] LABS: ABNORMAL IP MESSAGE 1; BASOPHILS % 0.2 % (0.0-2.0); EOSINOPHILS # 0.5 10^3/ul (0.0-0.5); EOSINOPHILS % 3.7 % (0.0-7.0); HEMATOCRIT 22.5 % (42.0-52.0); HEMOGLOBIN 7.3 g/dl (14.0-18.0); LYMPHOCYTES # 1.2 10^3/ul (0.8-2.9); MEAN CORPUSCULAR HEMOGLOBIN 30.8 pg (29.0-33.0); MEAN CORPUSCULAR HGB CONC 32.4 g/dl (32.0-37.0); MEAN CORPUSCULAR VOLUME 94.9 fl (82.0-101.0); MEAN PLATELET VOLUME 13.1 fl (7.4-10.4); MONOCYTES % 7.4 % (0.0-11.0); NEUTROPHILS % 77.8 % (39.0-77.0); NUCLEATED RED BLOOD CELLS # 0.1 10^3/ul (0.0-0.0); NUCLEATED RED BLOOD CELLS% 0.4 /100WBC (0.0-0.0); PLATELET COUNT 136 10^3/UL (140-415); POSITIVE DIFF @See below; RED BLOOD COUNT 2.37 10^6/ul (4.70-6.10)
[2018-07-02 06:02] LABS: ANION GAP 4 (5-13); BLOOD UREA NITROGEN 19 mg/dl (7-20); CALCIUM 7.2 mg/dl (8.4-10.2); CARBON DIOXIDE 26 mmol/L (21-31); CHLORIDE 114 mmol/L (97-110); CREATININE 0.93 mg/dl (0.61-1.24); Estimated GFR > 60 mL/min (>60); GLUCOSE 99 mg/dl (70-220); SODIUM 144 mmol/L (135-144)
[2018-07-02 06:10] LABS: PHOSPHORUS 1.9 mg/dl (2.5-4.9)
[2018-07-02 06:10] LABS: MAGNESIUM 1.7 mg/dl (1.7-2.5)
[2018-07-02] MEDS: SUCRALFATE (100 MG/ML) 10ML CUP NGT ×3 (08:10→17:10)
[2018-07-02] MEDS: BALSAM PERU/CASTOR OIL 60 GM TUBE TOP (08:10)
[2018-07-02] MEDS: MULTIVITAMINS 30 ML CUP NGT (08:10)
[2018-07-02] MEDS: MUPIROCIN 2% 22 GM OINT TOP (08:10)
[2018-07-02] MEDS: MEMANTINE 10 MG TAB PO (08:10)
[2018-07-02] MEDS: POTASSIUM CHLORIDE 100 ML IVPB (08:16)
[2018-07-02] MEDS: SOD CHLORIDE 0.45% 1,000 ML IV ×2 (08:16→15:35)
[2018-07-02] MEDS: LORAZEPAM 2 MG INJ IV (08:17)
[2018-07-02 09:09] LABS: VANCOMYCIN,TROUGH 8.8 ug/ml (10.0-20.0)
[2018-07-02] MEDS: VANCOMYCIN 1.25 GM in SOD CHLORIDE 0.9% 250 ML IVPB (10:30)
[2018-07-02] MEDS ORDERED: POTASSIUM PHOSPHATE 30 MM in SOD CHLORIDE 0.9% 250 ML IVPB (10:30)
[2018-07-02] MEDS: MAGNESIUM SULFATE 2 GM/50 ML 50 ML IVPB (10:33)
[2018-07-02] MEDS: POTASSIUM PHOSPHATE 20 MEQ in SOD CHLORIDE 0.9% 250 ML IVPB (13:33)
[2018-07-02] MEDS: CEFTRIAXONE 1 GM/50 ML (PMX) 50 ML IVPB (15:57)
== END 2018-07-02 18:00 | disposition short-term general hospital (02) | DRG 870 ==
LOC: E/R 12:00 → ICU 13:25
PROVIDERS: Hospitalist
PROC: 0BH17EZ Insertion of Endotracheal Airway into Trachea, Via Natural or Artificial Opening (ICD-10-PCS; principal; 2018-06-25)
PROC: 5A1955Z Respiratory Ventilation, Greater than 96 Consecutive Hours (ICD-10-PCS; 2018-06-25)
PROC: 06HY33Z Insertion of Infusion Device into Lower Vein, Percutaneous Approach (ICD-10-PCS; 2018-06-25)
PROC: 30233N1 Transfusion of Nonautologous Red Blood Cells into Peripheral Vein, Percutaneous Approach (ICD-10-PCS; 2018-06-25)
PROC: 30233R1 Transfusion of Nonautologous Platelets into Peripheral Vein, Percutaneous Approach (ICD-10-PCS; 2018-06-28)
PROC: 30233N1 Transfusion of Nonautologous Red Blood Cells into Peripheral Vein, Percutaneous Approach (ICD-10-PCS; 2018-06-29)
PROC: 30233R1 Transfusion of Nonautologous Platelets into Peripheral Vein, Percutaneous Approach (ICD-10-PCS; 2018-06-29)
PROC: 30233N1 Transfusion of Nonautologous Red Blood Cells into Peripheral Vein, Percutaneous Approach (ICD-10-PCS; 2018-07-01)
DX: A41.9 Sepsis, unspecified organism (principal); R65.21 Severe sepsis with septic shock; R57.1 Hypovolemic shock; J96.01 Acute respiratory failure with hypoxia; J18.9 Pneumonia, unspecified organism; G92 Toxic encephalopathy; I50.33 Acute on chronic diastolic (congestive) heart failure; N17.0 Acute kidney failure with tubular necrosis; E87.2 Acidosis; E87.1 Hypo-osmolality and hyponatremia; K92.2 Gastrointestinal hemorrhage, unspecified; M62.82 Rhabdomyolysis; E87.0 Hyperosmolality and hypernatremia; E87.4 Mixed disorder of acid-base balance; N13.6 Pyonephrosis; M87.9 Osteonecrosis, unspecified; I13.0 Hypertensive heart and chronic kidney disease with heart failure and stage 1 through stage 4 chronic kidney disease, or unspecified chronic kidney disease; Z99.11 Dependence on respirator [ventilator] status; K92.1 Melena; Z96.642 Presence of left artificial hip joint; G30.9 Alzheimer's disease, unspecified; F02.80 Dementia in other diseases classified elsewhere, unspecified severity, without behavioral disturbance, psychotic disturbance, mood disturbance, and anxiety; D64.9 Anemia, unspecified; E87.5 Hyperkalemia; I48.0 Paroxysmal atrial fibrillation; G40.909 Epilepsy, unspecified, not intractable, without status epilepticus; D69.6 Thrombocytopenia, unspecified; N18.9 Chronic kidney disease, unspecified; R31.9 Hematuria, unspecified; K56.41 Fecal impaction; E83.41 Hypermagnesemia; Y95 Nosocomial condition; Z79.82 Long term (current) use of aspirin
CPT/HCPCS: 36415; 36430; 36600; 70450; 71045; 74018; 74176; 76775; 76937; 80048; 80053; 80061; 80076; 80162; 80202; 81001; 81003; 82043; 82140; 82270; 82550; 82553; 82607; 82746; 82803; 82962; 83036; 83605; 83735; 84100; 84155; 84300; 84439; 84443; 84484; 85014; 85018; 85025; 85049; 85362; 85378; 85384; 85610; 85670; 85730; 86644; 86850; 86900; 86901; 86920; 87040; 87070; 87081; 87086; 89220; 93005; 93306; 94002; 94003; 94770; 95819; 96361; 96374; 96375; 99291-25